=== PATIENT | male | born 2000 | race African-American/Black ===

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

== ENCOUNTER 2019-04-17 11:18 | Emergency (ER) | payer OTHER ==
[~2019-04-17] VITALS: Ht 185.4 cm; Wt 75.2 kg
[~2019-04-17 11:18] MED LIST changes: +AMOXICILLIN500 M1 PO; +VALTREX1000 MG PO
[2019-04-17 11:43] VITALS: Ht 185.4 cm; Wt 75.2 kg
[2019-04-17 12:25] LABS: APPEARANCE CLEAR (CLEAR); BILIRUBIN NEGATIVE (NEGATIVE); COLOR YELLOW (YELLOW); GLUCOSE NEGATIVE (NEGATIVE); KETONE NEGATIVE (NEGATIVE); NITRITE NEGATIVE (NEGATIVE); PROTEIN NEGATIVE (NEGATIVE); SPECIFIC GRAVITY 1.005 (1.005-1.020); UROBILINOGEN NORMAL (NORMAL)
[2019-04-17 12:26] LABS: BACTERIA FEW /hpf (NEGATIVE); EPITHELIAL CELLS 0-5 /hpf (0-5); RED CELLS - URINE RARE /hpf (0-5); WHITE CELLS - URINE 0-5 /hpf (NEGATIVE)
[2019-04-17 12:57] VITALS: BP 137/69
== END 2019-04-17 12:58 | disposition home or self-care (01) ==
LOC: D.ER 11:18
PROVIDERS: Family Medicine
DX: N34.2 Other urethritis (principal)

== ENCOUNTER 2019-10-05 06:14 | Inpatient (IN) | payer SELFPAY ==
[2019-10-05] VITALS (15 sets, daily range): BP systolic 117–169; BP diastolic 68–99; Ht 185.4 cm; Wt 78.6 kg
[~2019-10-05] VITALS: Ht 185.4 cm; Wt 78.6 kg
--- NOTE | 2019-10-05 06:49 | NUR ---
PT COMBATIVE AND NOT COOPERATIVE. DOES NOT SEEM PURPOSEFUL- DOES SEEM TO BE TALKING OUT OF HIS HEAD. PLACED IN 4 POINT LEATHER RESTRAINTS AFTER UNABLE TO GET PATIENT TO COOPERATE AND STAY ON THE BED.
--- NOTE | 2019-10-05 07:09 | NUR ---
PT CALMING DOWN. REPORT TO ABDI MENDEZ.
[2019-10-05 07:12] LABS: BASOPHILS 0.1 % (0-2); EOSINOPHILS 0.1 % (0-7); HEMATOCRIT 41.5 % (42.0-54.0); IMMATURE GRANULOCYTES 0.2 % (0-5); LYMPHOCYTES 20.1 % (15-50); MCH 28.4 pg (26.0-34.0); MCHC 33.7 g/dL (31.0-37.0); MCV 84.2 fL (80.0-100.0); MONOCYTES 11.3 % (2-11); NEUTROPHILS 68.2 % (40-80); PLATELET COUNT 342 10x3/uL (130-400); RBC 4.93 10x6/uL (4.20-6.10); WBC 15.1 10x3/uL (4.8-10.8)
--- NOTE | 2019-10-05 07:15 | NUR ---
pulses in bue ble palabable cap refill <3. periodic non purposeful movements. incomprehensable sounds followed with word salad.
--- NOTE | 2019-10-05 07:30 | NUR ---
MOTHER CALLS REPORTS SHE SAW HIM " TAKE A BOTTLE OF DRUGS" SUBSTANCE UNKNOWN PULSES AND CAPREFILL IN BUE BLE WNL. PT NONVERBAL AT THIS TIME
[2019-10-05 07:37] LABS: ALBUMIN 4.5 g/dL (3.4-5.0); ANION GAP 23.5 mmol/L (8-16); BILIRUBIN - TOTAL 0.2 mg/dL (0.2-1.3); CALCIUM 8.7 mg/dL (8.5-10.1); CARBON DIOXIDE 20.2 mmol/L (21.0-32.0); CREATININE - SERUM 1.4 mg/dL (0.6-1.3); MAGNESIUM - SERUM 2.2 mg/dL (1.8-2.4); PROTEIN - SERUM 8.2 g/dL (6.4-8.2)
[2019-10-05 07:38] LABS: POTASSIUM - SERUM 2.7 mmol/L (3.5-5.1)
--- NOTE | 2019-10-05 07:38 | NUR ---
CRITICAL POTASSIUM OF 2.7 CALLED FROM LAB, ER PROVIDER NOTIFIED.
--- NOTE | 2019-10-05 07:45 | NUR ---
RESTRAINTS CHECKED. PT ATTEMPTS TO REMOVE RESTRAINTS. CAP REFILL AND PULSES WNL
[2019-10-05 08:14] LABS: CREATINE KINASE 510 UL (21-232)
[2019-10-05 08:15] LABS: CKMB 1.5 U/L (0.0-3.6)
[2019-10-05 09:30] LABS: APTT 26.7 SECONDS (22.8-39.4); INR 1.02 (0.85-1.17); PROTIME 13.3 SECONDS (11.6-15.0)
[2019-10-05 09:34] LABS: UDS - AMPHET NEGATIVE QUAL (NEGATIVE); UDS - BARB NEGATIVE QUAL (NEGATIVE); UDS - BENZO POSITIVE QUAL (NEGATIVE); UDS - COCAINE NEGATIVE QUAL (NEGATIVE); UDS - OPIATE NEGATIVE QUAL (NEGATIVE); UDS - PCP NEGATIVE QUAL (NEGATIVE); UDS - THC POSITIVE QUAL (NEGATIVE)
[2019-10-05 10:23] LABS: BILIRUBIN NEGATIVE (NEGATIVE); GLUCOSE NEGATIVE (NEGATIVE); KETONE NEGATIVE (NEGATIVE); NITRITE NEGATIVE (NEGATIVE); SPECIFIC GRAVITY 1.015 (1.005-1.020); WHITE CELLS - URINE OCC /hpf (NEGATIVE)
[2019-10-05 10:24] LABS: BACTERIA FEW /hpf (NEGATIVE); EPITHELIAL CELLS OCC /hpf (0-5)
--- NOTE | 2019-10-05 10:52 | NUR ---
patient hallucination. he is currently talking to someone else
--- NOTE | 2019-10-05 11:04 | NUR ---
dr tim at bedside. new orders
--- NOTE | 2019-10-05 12:11 | NUR ---
patient occassionaly jerks but is dozing off to sleep
--- NOTE | 2019-10-05 15:20 | NUR ---
REASSESSMENT COMPLETE, NO CHANGES NOTED, WILL CON'T TO MONITOR
--- NOTE | 2019-10-05 18:00 | NUR ---
PT OUT OF RESTRAINTS AT THIS TIME, CALM AND COOPERATIVE AT THIS TIME, VSS, CALL LIGHT IN REACH, 1:1 SITTER AT BEDSIDE
--- NOTE | 2019-10-05 19:15 | NUR ---
REPORT RECEIVED. PT LAYING IN BED, NO SIGNS OF ACUTE DISTRESS NOTED. ASSESSMENT COMPLETE, SEE FLOWSHEET. PIV IN LEFT FOREARM, SEE IV FLOWSHEET.
--- NOTE | 2019-10-05 21:00 | NUR ---
PT RESTING IN BED, NO ACUTE DISTRESS NOTED.
--- NOTE | 2019-10-05 23:00 | NUR ---
REASSESSMENT COMPLETED, SEE FLOWSHEET. PT RESTING IN BED.
--- NOTE | 2019-10-06 01:00 | NUR ---
PT RESTING IN BED, WILL CONTINUE TO MONITOR.
[2019-10-06 03:00] VITALS: BP 127/83
--- NOTE | 2019-10-06 03:00 | NUR ---
REASSESSMENT COMPLETED, SEE FLOWSHEET. WILL CONTINUE TO MONITOR.
[2019-10-06 04:08] LABS: BASOPHILS 0.3 % (0-2); EOSINOPHILS 0.6 % (0-7); HEMATOCRIT 37.8 % (42.0-54.0); HEMOGLOBIN 12.8 g/dL (13.5-17.5); IMMATURE GRANULOCYTES 0.3 % (0-5); LYMPHOCYTES 33.8 % (15-50); MCH 28.4 pg (26.0-34.0); MCHC 33.9 g/dL (31.0-37.0); MCV 83.8 fL (80.0-100.0); MEAN PLATELET VOLUME 11.4 fL (7.4-10.4); MONOCYTES 11.2 % (2-11); NEUTROPHILS 53.8 % (40-80); RBC 4.51 10x6/uL (4.20-6.10); RDW 13.2 % (11.5-14.5)
[2019-10-06 04:16] LABS: PLATELET COUNT 265 10x3/uL (130-400); WBC 7.9 10x3/uL (4.8-10.8)
[2019-10-06 04:37] LABS: ALBUMIN 3.7 g/dL (3.4-5.0); ALKALINE PHOSPHATASE 49 U/L (30-120); ALT (SGPT) 31 U/L (10-68); BILIRUBIN - TOTAL 0.52 mg/dL (0.2-1.3); CALCIUM 8.4 mg/dL (8.5-10.1); CHLORIDE - SERUM 104 mmol/L (98-107); CKMB 23.6 U/L (0.0-3.6); CREATININE - SERUM 1.1 mg/dL (0.6-1.3); MAGNESIUM - SERUM 2.2 mg/dL (1.8-2.4); POTASSIUM - SERUM 3.8 mmol/L (3.5-5.1); PROTEIN - SERUM 6.7 g/dL (6.4-8.2); SODIUM 138 mmol/L (136-145); TROPONIN-I 0.019 ng/mL (0.000-0.060); eGFR NON AFRICAN AMERICAN > 90 mL/min (90-120)
[2019-10-06 04:44] LABS: CALC OSMOLALITY 272 mosm/kg (275-300); CREATINE KINASE 6867 UL (21-232); GLUCOSE 82 mg/dL (74-106); UREA NITROGEN 8 mg/dL (7-18)
--- NOTE | 2019-10-06 05:00 | NUR ---
PT RESTING IN BED, NO SIGNS OF ACUTE DISTRESS NOTED. WILL CONTINUE TO MONITOR.
--- NOTE | 2019-10-06 07:00 | NUR ---
PT AWAKE ALERT AND ORIENT X 4. RESTRAINTS OFF. ASSESSMENT PER FLOWSHEET.
--- NOTE | 2019-10-06 07:17 | NUR ---
SHIFT ASSESSMENT COMPLETE, PT IS ALERT AND ORIENTED, ON RA WITH 97% O2 SAT. ALL PPP, VSS, SITTER AT BEDSIDE,
[2019-10-06 07:18] VITALS: BP 133/80
[2019-10-06 12:48] VITALS: BP 145/100
--- NOTE | 2019-10-06 12:50 | NUR ---
REPORT CALLED TO MED [facility], PT TRANSFERRED VIA WHEELCHAIR
--- NOTE | 2019-10-06 13:55 | NUR ---
PATIENT IN ROOM. S1S2 PRESENT. REDIAL AND PEDAL PULSES PALPABLE. LUNGS SOUNDS CTA ALL LOBES. BOWEL SOUNDS ACTIVE X 4. PATIENT STATES LAST BM WAS BEFORE HE CAME IN. IV THERAPY TO LEFT FOREARM 20 G PATENT, DRESSING INTACT, AND ORANGE CAPS IN PLACE. PATIENT STATES HE IS NOT HAVING ANY SUICIDAL THOUGHTS AT THIS TIME. CL IN REACH. WCTM
--- NOTE | 2019-10-06 15:01 | CN ---
PATIENT NAME:OTIS HUSSEIN MEDICAL RECORD: [id number] : 89 LOCATION:D.MS [id number] ADMIT DATE: 10/05/19 ACCOUNT: [id number] CONSULTING PHYSICIAN: JULIÁN DILLARD MD REFERRING PHYSICIAN: ANTOINETTE WALLACE MD DATE OF CONSULTATION: 10/05/2019 IDENTIFYING DATA: The patient is 19 years old and he is admitted to the hospital secondary to an overdose. CHIEF COMPLAINT: None. HISTORY OF PRESENT ILLNESS: The patient took an entire bottle of Benadryl along with 15 Xanax tablets. It is unclear how he arrived at the Emergency Room, but he was combative and agitated there. He has been combative and agitated in the intensive care unit and has been in physical restraints because of his agitation. He is cooperative with me, but clearly very impaired and sedated. He is arousable, but could not stay awake very long. He tells me that he was not trying to kill himself, but he cannot give me an explanation as to why he took an entire bottle of Benadryl, 15 Xanax tablets and was in the Emergency Room agitated. He endorses some depressive symptoms. He is not observed to have any psychotic symptoms. ASSESSMENT: 1. Status post overdose. 2. Polysubstance abuse. 3. Major depression. PLAN: At this time, the patient clearly did take an overdose in an attempt to harm himself. The amount of medication he took was in excess of what any reasonable person would take for the purpose of pursuing a euphoric effect. It is my recommendation that he stay 1:1 with a sitter and that he be transferred to acute inpatient psychiatric care when medically stabilized. TRANSINT:[id number] Voice Confirmation ID: [id number] DOCUMENT ID: [id number] JULIÁN DILLARD MD at 1501 CC: [id number] DICTATION DATE: 10/05/19 1628 CATALYST IMPREGNATOR: 10/05/19 1702 ADM IN [facility] [address] [id number]
[2019-10-06 17:16] VITALS: BP 148/83
--- NOTE | 2019-10-06 19:50 | NUR ---
PATIENT RESTING IN BED WITH NO S/S OF DISTRESS. PATIENT DENIES NEEDS AT THIS TIME. BED IN LOWEST POSITION AND CALL LIGHT WITHIN REACH. ENCOURAGED THE PATIENT TO CALL IF HE HAS NEEDS. WILL CONTINUE TO MONITOR.
[2019-10-06 20:08] LABS: CREATINE KINASE 6330 UL (21-232)
--- NOTE | 2019-10-06 20:21 | NUR ---
PAGECinthya GRIMES APN IN REGARDS TO PATIENT REQUEST TO REMOVE PIV.
[2019-10-06 20:22] LABS: CKMB 10.7 U/L (0.0-3.6)
[2019-10-06 22:05] VITALS: BP 132/76
--- NOTE | 2019-10-07 00:23 | NUR ---
PATIENT RESTING IN BED WITH NO S/S OF DISTRESS AND EYES CLOSED. BED IN LOWEST POSITION AND CALL LIGHT WITHIN REACH, WILL CONTINUE TO MONITOR.
[2019-10-07 01:08] VITALS: BP 125/66
[2019-10-07 05:38] VITALS: BP 138/72
[2019-10-07 06:01] LABS: BASOPHILS 0.4 % (0-2); EOSINOPHILS 2.1 % (0-7); HEMATOCRIT 40.7 % (42.0-54.0); HEMOGLOBIN 13.6 g/dL (13.5-17.5); IMMATURE GRANULOCYTES 0.2 % (0-5); LYMPHOCYTES 43.2 % (15-50); MCH 28.1 pg (26.0-34.0); MCHC 33.4 g/dL (31.0-37.0); MCV 84.1 fL (80.0-100.0); MEAN PLATELET VOLUME 11.1 fL (7.4-10.4); MONOCYTES 14.3 % (2-11); NEUTROPHILS 39.8 % (40-80); PLATELET COUNT 254 10x3/uL (130-400); RBC 4.84 10x6/uL (4.20-6.10); RDW 13.2 % (11.5-14.5)
[2019-10-07 06:18] LABS: WBC 5.2 10x3/uL (4.8-10.8)
[2019-10-07 06:39] LABS: ALBUMIN 3.6 g/dL (3.4-5.0); ALKALINE PHOSPHATASE 54 U/L (30-120); ALT (SGPT) 32 U/L (10-68); BILIRUBIN - TOTAL 0.65 mg/dL (0.2-1.3); CALC OSMOLALITY 264 mosm/kg (275-300); CALCIUM 8.5 mg/dL (8.5-10.1); CHLORIDE - SERUM 102 mmol/L (98-107); GLUCOSE 87 mg/dL (74-106); MAGNESIUM - SERUM 2.2 mg/dL (1.8-2.4); POTASSIUM - SERUM 3.9 mmol/L (3.5-5.1); SODIUM 134 mmol/L (136-145); UREA NITROGEN 7 mg/dL (7-18)
[2019-10-07 06:43] LABS: CREATININE - SERUM 0.8 mg/dL (0.6-1.3); eGFR NON AFRICAN AMERICAN > 90 mL/min (90-120)
--- NOTE | 2019-10-07 08:10 | NUR ---
PT RESTING IN BED WITH EYES CLOSED. AROUSES UPON STAFF ENTERING ROOM. RESP EVEN AND UNLABORED. DENIES PAIN AT THIS TIME. PT CALM AND COOPERATIVE AT THIS TIME. DENIES FURTHER NEEDS AT THIS TIME. CL WITHIN REACH. ECNOURAGED TO CALL WITH NEEDS. CONTINUE POC. CONTINUE 1:1 MONITORING PER MD ORDERS.
[2019-10-07 09:57] VITALS: BP 127/75
--- NOTE | 2019-10-07 10:00 | NUR ---
PT AMBULATING AROUND ROOM, AGITATION REGARDING HOSPITALIZATION. PT DENIES BEING SUICIDAL. HE PRESENTS DEMANDING TO HAVE SALINE LOC DISCONTINUED TO LEFT FOREARM. INSTRUCTED PT ORDERS WOULD BE NEEDED FROM MD TO DISCONTINUE. PT VOICES "I'M READY TO GET OUT OF HERE! CHANET BEEN HERE AND HAD NOT HAD A SHOWER." OFFERED TO ASSIST PT TO SHOWER AT THIS TIME. PT THEN REFUSES AT THIS TIME. PACING AROUND ROOM. INSTRUCTED PT STAFF WOULD MAKE CONTACT WITH MD REGARDING WISHES FOR IV TO BE DISCONTINUED. HE DID SIT DOWN ON SIDE OF BED. PRESENTING SOMEWHAT CALMER. WILL CONTINUE TO MONITOR.
[2019-10-07 14:41] VITALS: BP 152/94
[2019-10-07 15:06] LABS: CKMB 4.9 U/L (0.0-3.6)
[2019-10-07 15:07] LABS: CREATINE KINASE 4940 UL (21-232)
[2019-10-07 17:46] VITALS: BP 148/84
--- NOTE | 2019-10-07 19:25 | NUR ---
PT SITTING UP ON SIDE OF BED WATCHING TV, AOX4. PT CALM AND COOPERATIVE. NO COMPLAINTS. REQUESTED AND GIVEN DEODORANT. GAVE WATER AND SPRITE. DENIES OTHER NEEDS. CL IN REACH, WILL CTM
[2019-10-07 20:00] VITALS: BP 130/67
[2019-10-08 04:00] VITALS: BP 135/60
[2019-10-08 04:06] LABS: BASOPHILS 0.2 % (0-2); EOSINOPHILS 2.3 % (0-7); HEMATOCRIT 43.7 % (42.0-54.0); HEMOGLOBIN 14.9 g/dL (13.5-17.5); IMMATURE GRANULOCYTES 0.2 % (0-5); LYMPHOCYTES 36.5 % (15-50); MCH 28.7 pg (26.0-34.0); MCHC 34.1 g/dL (31.0-37.0); NEUTROPHILS 46.8 % (40-80); PLATELET COUNT 252 10x3/uL (130-400)
[2019-10-08 04:46] LABS: ALBUMIN 4.1 g/dL (3.4-5.0); ALKALINE PHOSPHATASE 58 U/L (30-120); ALT (SGPT) 39 U/L (10-68); BILIRUBIN - TOTAL 1.05 mg/dL (0.2-1.3); CALCIUM 9.2 mg/dL (8.5-10.1); CARBON DIOXIDE 26.3 mmol/L (21.0-32.0); CHLORIDE - SERUM 101 mmol/L (98-107); CKMB 3.3 U/L (0.0-3.6); GLUCOSE 94 mg/dL (74-106); MAGNESIUM - SERUM 2.2 mg/dL (1.8-2.4); POTASSIUM - SERUM 4.1 mmol/L (3.5-5.1); PROTEIN - SERUM 7.4 g/dL (6.4-8.2); SODIUM 137 mmol/L (136-145); eGFR NON AFRICAN AMERICAN > 90 mL/min (90-120)
[2019-10-08 04:54] LABS: CALC OSMOLALITY 272 mosm/kg (275-300); CREATINE KINASE 3464 UL (21-232); UREA NITROGEN 9 mg/dL (7-18)
[2019-10-08 09:13] VITALS: BP 132/88
--- NOTE | 2019-10-08 10:20 | NUR ---
PT IN SHOWER THIS MORNING, NO S/SX OF DISTRESS, NO NEEDS VOICE, PT IS CALM AND COOPERATIVE, CONTINUE WITH PLAN OF CARE
[2019-10-08 12:36] VITALS: BP 123/77
--- NOTE | 2019-10-08 12:46 | NUR ---
PT IS READY TO GO HOME STATES HE SHOULD NOT BE HERE AND WISHES TO BE REEVAULATED, PT SPOKE TO MIGUEL A AND AND NEW CONSULT PLACED FOR PSYCH EVAL. CONTINUE WITH PLAN OF CARE
--- NOTE | 2019-10-08 13:57 | NUR ---
I have reviewed this patient and I concur with the Shift Assessment completed by the Licensed Practical Nurse today this shift.
--- NOTE | 2019-10-08 17:29 | NUR ---
PT DC HOME, WENT OVER PT DC PAPERWORK AND FOLLOW UP APPOINTMENTS RECOMMENDED. PT TAKEN TO ER FOR RIDE TO STAFF COMMAND AND CONTROL OFFICER. ALL QUESTIONS ANSWERED
--- NOTE | 2019-10-09 12:33 | MORECARE ---
CASE MANAGEMENT DISCHARGE SUMMARY PATIENT: OTIS HUSSEIN UNIT: [id number] ADM DATE: 10/05/19 AGE: 19 : 99 SEX: M ROOM/BED: [id number] AUTHOR: DENIZ BROOKS PHYSICIAN: REFERRING PHYSICIAN: ANTOINETTE WALLACE MD DATE OF SERVICE: 10/09/19 Discharge Plan Patient Name: OTIS HUSSEIN Facility: [facility]:Story : 2000 Planned Disposition: Anticipated Discharge Date: Discharge Date: 10/08/2019 Expected LOS: 0 Initial Reviewer: [email or web address] Initial Review Date: 10/05/2019 Generated: 10/09/19 1:33 pm Comments DCP- Discharge Planning Updated by [email or web address]: Yahaira العلي on 10/08/19 1:[address] I SPOKE WITH LAMAR AT [facility] AND I HAVE SENT A REFERRAL TO HER SHE STATED THAT SHE HAS HAD DISCHARGES TODAY AND WILL HAVE BEDS OPEN THIS AFTERNOON. CM WILL CONTINUE TO FOLLOW AND ASSIST DCP- Discharge Planning Updated by [email or web address]: Yahaira العلي on 10/08/19 8:[address] [facility] CALLED FOR UPDATED CLINICALS THEY WERE FAXED TO [phone] DCP- Discharge Planning Updated by [email or web address]: Yahaira العلي on 10/07/19 3:[address] [facility] HAS DENIED THE PATIENT External Providers External Provider: OTHER-OTHER Next Contact Date: Service Request Date: Service Type: Resolution: Reviewer: Comments: External Provider: Emil Next Contact Date: Service Request Date: Service Type: Resolution: Reviewer: Comments: External Provider: [facility] Next Contact Date: Service Request Date: Service Type: Resolution: Reviewer: Comments: External Provider: OTHER-OTHER Next Contact Date: Service Request Date: Service Type: Resolution: Reviewer: Comments: External Provider: OTHER-OTHER Next Contact Date: Service Request Date: Service Type: Resolution: Reviewer: Comments: External Provider: OTHER-OTHER Next Contact Date: Service Request Date: Service Type: Resolution: Reviewer: Comments: Patient Name: OTIS HUSSEIN Page [phone] at 1233 All edits/amendments must be made on the electronic document DICTATION DATE: 10/09/19 1233 HR RECRUITER: SOBEIDA 10/09/19 1233 RPT#: [id number] DC DATE:10/08/19 STATUS: DIS IN [facility] [address] [place] [address] END OF REPORT
--- NOTE | 2019-10-09 15:48 | PN ---
PATIENT:OTIS HUSSEIN MEDICAL RECORD: [id number] LOCATION:D.MS [facility] ADMISSION DATE: 10/05/19 PROGRESS NOTE DATE OF SERVICE: 10/08/2019 SUBJECTIVE: The patient's case was discussed with staff. He has no new complaint. OBJECTIVE: The patient is awake, alert and cooperative. He was fairly sedated when I saw him 3 days ago. He denies neurovegetative depressive symptoms and states that he was not trying to kill himself, but seeking attention. He tells me that he has been having a lot of conflict with the woman who is the mother of his son. He says that he was trying to seek attention from her and that he did not take but 2 Benadryl and 4 Xanax. He says he knows that this was too much. He is willing to go to outpatient mental health and I would refer him to [facility] behavioral counseling. I do not see evidence of acute or direct dangerousness and suspect that the actions of a few days ago were spontaneous, unplanned, and not with the intent of killing himself. He is immature, below normal intelligence, and far below normal coping skills. I do think outpatient psychotherapy would be appropriate, but I do not view him as an acute danger and see no reason or benefit from inpatient psychiatric care. TRANSINT:[id number] Voice Confirmation ID: [id number] DOCUMENT ID: [id number] JULIÁN DILLARD MD at 1548 CC: [id number] DICTATION DATE: 10/08/19 1659 PASTE UP WORKER: 10/08/19 1713 DIS IN 10/08/[id number] [place] [address]
== END 2019-10-08 17:33 | disposition home or self-care (01) | DRG 918 ==
LOC: D.ER 06:14 → D.MS 08:35 → D.ICU 08:35 → D.MS 10-06 12:56
PROVIDERS: Emergency Medicine; Family Medicine; ADMIT Family Medicine; ATTEND Family Medicine
DX: T45.0X1A Poisoning by antiallergic and antiemetic drugs, accidental (unintentional), initial encounter (principal); N17.9 Acute kidney failure, unspecified; M62.82 Rhabdomyolysis; T39.091A Poisoning by salicylates, accidental (unintentional), initial encounter; F32.9 Major depressive disorder, single episode, unspecified; F12.10 Cannabis abuse, uncomplicated; D64.9 Anemia, unspecified; E87.6 Hypokalemia